=== PATIENT | male | born 1990 | race Caucasian/White ===

== ENCOUNTER 2018-09-02 06:22 | Day surgery (SDC) | payer OTHER ==
[2018-09-01 09:26] VITALS: BP 146/70
[~2018-09-02] VITALS: Ht 175.3 cm; Wt 68.2 kg
[~2018-09-02 06:22] MED LIST: None at this time
[2018-09-02] MEDS ORDERED: LACTATED RINGERS 1,000 ML IV SCH (07:16)
[2018-09-02] MEDS ORDERED: FENTANYL PF 250 MCG/5ML ONE (07:47)
[2018-09-02] MEDS ORDERED: MIDAZOLAM 1 MG/ML, 2ML ONE (07:47)
[2018-09-02] MEDS ORDERED: PROPOFOL 50 ML ONE (07:47)
[2018-09-02] MEDS ORDERED: BUPIVACAINE/PF-EPI 0.5% 1:200K ONE ×2 (08:23→08:31)
[2018-09-02] MEDS ORDERED: EPINEPHRINE 1 MG/ML, 1ML ONE (08:23)
[2018-09-02] MEDS ORDERED: ONDANSETRON 2MG/ML, 2ML ONE (08:41)
[2018-09-02] MEDS ORDERED: CEFAZOLIN 1,000 MG ONE (08:41)
[2018-09-02] MEDS ORDERED: DEXAMETHASONE 4 MG/ML, 1ML ONE (08:41)
[2018-09-02] MEDS ORDERED: PROPOFOL 10 MG/ML, 20ML ONE ×2 (08:41)
[2018-09-02] MEDS ORDERED: MIDAZOLAM 1 MG/ML, 2ML IV PRN (09:00)
[2018-09-02] MEDS ORDERED: PROMETHAZINE 25 MG/ML, 1ML IV PRN (09:00)
[2018-09-02] MEDS ORDERED: MORPHINE SULFATE 4 MG/ML, 1ML IVPush PRN (09:00)
[2018-09-02] MEDS ORDERED: PROMETHAZINE 25 MG SUPP PR PRN (09:00)
[2018-09-02] MEDS ORDERED: ONDANSETRON 2MG/ML, 2ML IV PRN (09:00)
[2018-09-02] MEDS ORDERED: EPHEDRINE 50 MG/ML, 1ML IM PRN (09:00)
[2018-09-02] MEDS ORDERED: DIPHENHYDRAMINE 50 MG/ML, 1ML IVPush PRN (09:00)
[2018-09-02] MEDS ORDERED: ONDANSETRON ODT 8 MG PO PRN (09:00)
[2018-09-02] MEDS ORDERED: PROMETHAZINE 12.5 MG SUPP PR PRN (09:00)
[2018-09-02] MEDS ORDERED: MEPERIDINE/PF 25MG/0.5ML IVPush PRN (09:00)
[2018-09-02] MEDS ORDERED: OXYcodone 5 MG/5 ML ORAL.SOL UDC PO PRN (09:00)
[2018-09-02] MEDS ORDERED: ACETAMINOPHEN 325 MG TABLET PO PRN (09:00)
[2018-09-02] MEDS ORDERED: OXYcodone 5 MG/5 ML ORAL.SOL UDC ONE (09:50)
[2018-09-02] MEDS ORDERED: FENTANYL PF 100 MCG/2ML ONE (09:50)
[2018-09-02] MEDS ORDERED: ACETAMINOPHEN 650 MG/20.3 ML UDC ONE (09:50)
[2018-09-02] MEDS: FENTANYL PF 100 MCG/2ML IV PRN ×2 (09:56→10:12)
[2018-09-02] MEDS ORDERED: MEPERIDINE/PF 25MG/ML,1ML ONE (10:01)
== END 2018-09-02 12:40 | disposition home or self-care (01) ==
LOC: OUT 06:22
PROVIDERS: ATTEND Orthopaedic Surgery
DX: T84.84XA Pain due to internal orthopedic prosthetic devices, implants and grafts, initial encounter (principal); Y83.8 Other surgical procedures as the cause of abnormal reaction of the patient, or of later complication, without mention of misadventure at the time of the procedure; Y92.89 Other specified places as the place of occurrence of the external cause
CPT/HCPCS: 20680; 73600; 76000; J0171; J0690; J1100; J2175; J2250; J2405; J2704; J3010; J7120

== ENCOUNTER 2018-09-17 17:05 | Emergency (ER) | payer OTHER ==
[~2018-09-17] VITALS: Ht 167.6 cm; Wt 69.7 kg
[2018-09-17] MEDS ORDERED: OMNIPAQUE 350 MG/ML, 100ML BOTTLE ONE (18:00)
[2018-09-17 18:03] LABS: BASOPHILS # (AUTO) 0.03 x10^3/uL (0-0.1); BASOPHILS % (AUTO) 0 % (0-1); EOSINOPHILS % (AUTO) 3 % (1-7); LYMPHOCYTES # (AUTO) 2.19 x10^3/uL (1-3.4); LYMPHOCYTES % (AUTO) 24 % (22-44); MD NO; MEAN CORPUSCULAR HEMOGLOBIN 29.8 pg (27.5-34.5); MEAN CORPUSCULAR VOLUME 85.2 fL (81-97); MEAN PLATELET VOLUME 8.4 fL (7.4-10.4); MONOCYTES # (AUTO) 0.74 x10^3/uL (0.2-0.8); MONOCYTES % (AUTO) 8 % (2-9); NEUTROPHILS # (AUTO) 5.75 x10^3/uL (1.8-6.8); NEUTROPHILS % (AUTO) 64 % (42-75); PLATELET COUNT 277 x10^3/uL (130-400)
[2018-09-17 18:14] LABS: ANION GAP 5 mmol/L (5-15); CALCIUM 8.2 mg/dL (8.5-10.1); CHLORIDE 109 mmol/L (98-107); CREATININE 1.41 mg/dL (0.7-1.3)
--- NOTE | 2018-09-17 18:15 | NUR ---
PT HERE FOR LEFT ANKLE PAIN S/P HARDWARE REMOVAL. PT REPORTS THAT HE STARTED HAVIGN THROBBING AND SEVERE PAIN. PT REPORTS DID REPORT DISCOLORATION AND PAIN RADIATING TO CALF. PT CONNECTED TO ALL MONITORS AND CALL LIGHT REACH.
--- NOTE | 2018-09-17 18:44 | NUR ---
LUNCH BREAK NOTE: PT IV STARTED FOR CTA CHEST. VSS. CT AWARE THAT IV IS IN PLACE. 3 P'S ADDRESSED.
--- NOTE | 2018-09-17 19:09 | NUR ---
REPORT FROM AYDIN BAUMANN, ASSUME CARE OF PT AT THIS TIME.
[2018-09-17 19:59] VITALS: BP 122/64
== END 2018-09-17 20:01 | disposition home or self-care (01) ==
LOC: ED 20:00
DX: S82.255A Nondisplaced comminuted fracture of shaft of left tibia, initial encounter for closed fracture (principal); X58.XXXA Exposure to other specified factors, initial encounter; Y93.89 Activity, other specified; Y92.89 Other specified places as the place of occurrence of the external cause; Y99.8 Other external cause status
CPT/HCPCS: 29515; 36415; 71275; 73590; 80048; 85025; 93005; 99284; Q9967